=== PATIENT | male | born 1980 | race Caucasian/White ===

== ENCOUNTER 2017-09-20 14:38 | Emergency (ER) | payer SELFPAY ==
[2017-09-20 14:45] VITALS: BMI 33.9
--- NOTE | 2017-09-20 15:21 | DR.GENAD ---
HPI - PCP Primary Care Physician: NFD - Complaint/Symptoms Chief Complaint Doctors Comments: Patient presents with complaint of cold type symptoms for two days. Chief Complaint:: C/O COUGH, BAD HEADACHES, SORE THROAT, COUGHING UP SMALL AMTS OF BLOOD IN SPUTUM, CHEST TIGHTNESS - Source History Provided: Patient - Mode of Arrival Mode of Arrival: Ambulatory - Timing Onset of Chief Complaint: 09/17/17 PMH - PMH Past Medical History: No Past Surgical History: No - Family History History of Family Medical Conditions: Yes Family Medical History: Diabetes Mellitus - Social History Does patient currently use any type of tobacco product: Yes Have you used tobacco products in the last 12 months: Yes Type of Tobacco Use: Cigarettes How many years tobacco product used: 12 Does any household member use tobacco: No Alcohol Use: Rarely Do you use any recreational Drugs:: No Lives With: Alone Lives Where: Home - infectious screening In the last 2 months have you had wt loss of >10#?: NO Have you traveled outside the country in the last 6 months?: No Isolation: Standard ROS - Review of Systems Eyes: No Symptoms Reported ENTM: No Symptoms Reported Respiratoy: No Symptoms Reported Cardiovascular: No Symptoms Reported Gastrointestinal/Abdominal: No Symptoms Reported Genitourinary: No Symptoms Reported Neurological: No Symptoms Reported Musculoskeletal: No Symptoms Reported Integumentary: No Symptoms Reported Hematologic/Lymphatic: No Symptoms Reported Endocrine: No Symptoms Reported Psychiatric: No Symptoms Reported All Other Systems: Reviewed and Negative PE - Vital Signs Vitals: Temperature 100.1 F Pulse Rate 115 Respiratory Rate 20 Blood Pressure 123/73 O2 Sat by Pulse Oximetry 97 - General Limitations: No Limitations General Appearance: Alert, In No Apparent Distress - Head Head Exam: Normal Inspection - Eyes Eye exam: Normal Appearance, PERRL, EOMI - ENT ENT Exam: Normal Exam, Normal Oropharynx External Ear Exam: Normal External Inspection TM/Canal Exam: Bilateral Normal Nose Exam: Normal Nose Exam Mouth Exam: Normal Inspection Throat Exam: Normal Inspection - Neck Neck Exam: Normal Inspection - Chest Chest Inspection: Normal Inspection - Respiratory Respiratory Exam: Normal Lung Sounds Bilat, Accessory Muscle Use Respiratory Exam: Bilateral Clear to Auscultation - Cardiovascular Cardiovascular Exam: Regular Rate - Abdominal Exam Abdominal Exam: Normal Inspection Abdominal Tenderness: negative: RUQ, RLQ, LUQ, LLQ, Epigastrium, Suprapubic, Diffuse, Mild, Moderate, Severe, Other - Extremities Extremities Exam: Normal Inspection - Back Back Exam: Normal Inspection - Neurologic Neurological Exam: Alert, Oriented X3, CN II-XII Intact - Skin Skin Exam: Warm, Dry, Intact Course - Treatment Treatment: Duo Neb - Reevaluation 1st: Improved - Education/Counseling Educated On: Treatment, Diagnosis, Prognosis, Needs for Follow Up ROR - Labs Reviewed Result Diagrams: 09/20/17 15:33 Laboratory: WBC 6.5 X10^3/uL (3.6-10.0) 09/20/17 15:33 RBC 5.15 X10^6/uL (4.7-6.0) 09/20/17 15:33 Hgb 16.3 g/dL (13.5-18.0) 09/20/17 15:33 Hct 46.7 % (42.0-54.0) 09/20/17 15:33 MCV 90.7 fL (80.0-100.0) 09/20/17 15:33 MCH 31.6 pg (27.0-34.0) 09/20/17 15:33 MCHC 34.8 g/dL (33.0-35.0) 09/20/17 15:33 RDW 14.3 % (11.6-16.5) 09/20/17 15:33 Plt Count 186 X10^3/uL (150.0-450.0) 09/20/17 15:33 MPV 8.6 fL (7.4-11.0) 09/20/17 15:33 Neut % (Auto) 51.0 % (42.0-75.0) 09/20/17 15:33 Lymph % (Auto) 33.3 % (21.0-51.0) 09/20/17 15:33 [place] % (Auto) 10.9 % (0.0-13.0) 09/20/17 15:33 Eos % (Auto) 4.3 % (0.9-2.9) H 09/20/17 15:33 Baso % (Auto) 0.5 % (0.2-1.0) 09/20/17 15:33 Neut # (Auto) 3.3 x10^3/uL (2.2-4.8) 09/20/17 15:33 Lymph # (Auto) 2.2 X10^3/uL (1.3-2.9) 09/20/17 15:33 [place] # (Auto) 0.7 x10^3/uL (0.3-0.8) 09/20/17 15:33 Eos # (Auto) 0.3 x10^3/uL (0.0-0.2) H 09/20/17 15:33 Baso # (Auto) 0.0 X10^3/uL (0.0-0.1) 09/20/17 15:33 Absolute Nucleated RBC 0.0 /100WBC 09/20/17 15:33 C-Reactive Protein 29.70 mg/L (0-3.0) H 09/20/17 15:33 Influenza Type A (PCR) Negative (NEGATIVE) 09/20/17 15:28 Influenza Type B (PCR) Negative (NEGATIVE) 09/20/17 15:28 - XRAY XRAY Interpreted by: Radiologist (Chest: No acute process) - Diagnosis Discharge Problem: Acute bronchitis Qualifiers: Bronchitis organism: other organism Qualified Code(s): J20.8 - Acute bronchitis due to other specified organisms - Discharge Plan Condition: Stable - Follow ups/Referrals Follow ups/Referrals: NFD,None [Primary Care Provider] - 3 days - Instructions
[2017-09-20] MEDS ORDERED: NS 1000 ML 1,000 ML ONE (15:23)
[2017-09-20] MEDS ORDERED: DUONEB 0.5 MG/3 MG NEB ONE (15:23)
[2017-09-20] MEDS ORDERED: NS 1000 ML 1,000 ML IV ONE (15:23)
[2017-09-20] MEDS ORDERED: DUONEB 0.5 MG/3 MG ONE (15:26)
[2017-09-20 15:44] LABS: BASOPHILS % (AUTO) 0.5 % (0.2-1.0); EOSINOPHILS # (AUTO) 0.3 x10^3/uL (0.0-0.2); EOSINOPHILS % (AUTO) 4.3 % (0.9-2.9); HEMATOCRIT 46.7 % (42.0-54.0); HEMOGLOBIN 16.3 g/dL (13.5-18.0); LYMPHOCYTES # (AUTO) 2.2 X10^3/uL (1.3-2.9); LYMPHOCYTES % (AUTO) 33.3 % (21.0-51.0); MEAN CORPUSCULAR HEMOGLOBIN 31.6 pg (27.0-34.0); MEAN CORPUSCULAR HGB CONC 34.8 g/dL (33.0-35.0); MEAN CORPUSCULAR VOLUME 90.7 fL (80.0-100.0); MEAN PLATELET VOLUME 8.6 fL (7.4-11.0); MONOCYTES # (AUTO) 0.7 x10^3/uL (0.3-0.8); MONOCYTES % (AUTO) 10.9 % (0.0-13.0); NEUTROPHILS # (AUTO) 3.3 x10^3/uL (2.2-4.8); PLATELET COUNT 186 X10^3/uL (150.0-450.0); RED BLOOD COUNT 5.15 X10^6/uL (4.7-6.0); RED CELL DISTRIBUTION WIDTH 14.3 % (11.6-16.5); WHITE BLOOD COUNT 6.5 X10^3/uL (3.6-10.0)
--- NOTE | 2017-09-20 15:50 | RAD ---
Examination: Chest, PA and lateral views History: Cough, sore throat Findings: Normal heart size with clear lungs and pleural spaces. Impression: No acute or significant findings. Reported By:
[2017-09-20 16:25] VITALS: BP 116/51
== END 2017-09-20 16:30 | disposition home or self-care (01) ==
LOC: ER 14:49
DX: J20.8 Acute bronchitis due to other specified organisms (principal); Z72.0 Tobacco use
CPT/HCPCS: 36415; 71046; 85025; 86140; 87502; 94640; 96365; 99282; 99283; A4222; J7620